=== PATIENT | female | born 1955 | race Two or more races ===

== ENCOUNTER 2016-09-13 12:24 | Emergency (ER) | payer BC ==
[~2016-09-13] VITALS: Ht 162.6 cm; Wt 60.3 kg
[2016-09-13 13:43] VITALS: BP 108/76
== END 2016-09-13 13:43 | disposition home or self-care (01) ==
LOC: ER 12:27
DX: S22.42XA Multiple fractures of ribs, left side, initial encounter for closed fracture (principal); W01.0XXA Fall on same level from slipping, tripping and stumbling without subsequent striking against object, initial encounter; Y92.89 Other specified places as the place of occurrence of the external cause; Y93.89 Activity, other specified; Y99.8 Other external cause status
CPT/HCPCS: 71010; 99283; A4606; Z7610